=== PATIENT | male | born 1945 | race Caucasian/White ===

== ENCOUNTER 2021-02-02 12:09 | Outpatient (CLI) | payer MEDICARE, SELFPAY ==
[2021-02-02 12:28] LABS: Basophils Absolute Auto 0.1 K/mm3 (0.0-0.1); Basophils Percent Auto 1.1 % (0.2-1.2); Eosinophils Absolute Auto 0.3 K/mm3 (0-0.3); Eosinophils Percent Auto 5.7 % (0-4.4); Hematocrit 41.1 % (42.0-52.0); Hemoglobin 14.4 g/dL (14.0-18.0); Immature Granulocyte Absolute 0.02 K/mm3 (0.00-0.031); Immature Granulocyte Percent A 0.4 % (0-0.5); Lymphocytes Absolute Auto 0.79 K/mm3 (0.9-3.2); Lymphocytes Percent Auto 14.4 % (18.3-44.2); Mean Corpuscular Volume 97.2 fl (80-100); Mean Platelet Volume 9.5 fl (7.4-10.4); Monocytes Absolute Auto 0.6 K/mm3 (0.1-0.6); Monocytes Percent Auto 11.7 % (2.6-8.5); Neutrophils Absolute Auto 3.7 K/mm3 (1.3-6.7); Neutrophils Percent Auto 66.7 % (45.5-73.1); Platelet Count Result 208 k/mm3 (150-375); Red Blood Count 4.23 M/mm3 (4.6-6.20); Red Cell Distribution Width 11.9 % (11.5-14.5); White Blood Count 5.5 K/mm3 (4.5-10.0)
[2021-02-02 15:26] LABS: Alanine Aminotransferase 19 U/L (4-50); Albumin Level 4.3 g/dL (3.5-5.1); Alkaline Phosphatase 78 U/L (38-126); Anion Gap 7 mmol/L (8-16); Aspartate Amino Transferase 28 U/L (17-59); Bilirubin,Total 0.5 mg/dL (0.2-1.3); Blood Urea Nitrogen 16 mg/dL (9-20); Calcium 9.2 mg/dL (8.4-10.2); Carbon Dioxide 28 mmol/L (22-30); Chloride 102 mmol/L (98-107); Cholesterol 174 mg/dL (0-200); Estimated Glomerular Filt Rate > 60; Glucose 96 mg/dL (65-110); HDL Direct 59 mg/dL; Potassium 4.4 mmol/L (3.4-5.0); Sodium 137 mmol/L (137-145); Triglycerides 81 mg/dL (<150)
[2021-02-02 15:38] LABS: LDL Cholesterol Direct 88 mg/dL
[2021-02-02 16:01] LABS: Free T4 Free Thyroxine 0.94 ng/mL (0.78-2.19)
== END 2021-02-02 12:10 | disposition home or self-care (01) ==
LOC: ANHLAB 12:16
PROVIDERS: PCP Family Medicine; Visit Provider Family Medicine
DX: R60.9 Edema, unspecified (principal); E78.2 Mixed hyperlipidemia; I10 Essential (primary) hypertension; Z79.899 Other long term (current) drug therapy
CPT/HCPCS: 36415; 80053; 80061; 84439; 84443; 85025

== ENCOUNTER → 2021-07-22 09:10 | Outpatient (CLI) | payer MEDICARE, SELFPAY ==
--- NOTE | ~2021-07-22 | CT_ITS ---
EXAMINATION: CT abdomen pelvis wo/w con EXAM DATE: 07/22/2021 09:56 INDICATION: Microhematuria . TECHNIQUE: Spiral CT of the abdomen and pelvis was performed without contrast. The patient was then injected with small bolus intravenous Omnipaque 350, followed by delay of approximately 10 minutes to allow collecting system to opacify. A post contrast scan abdomen and pelvis was performed during inj ection of remaining contrast. A total of 130 cc intravenous contrast was administered. The dose-alex th product (DLP) for this examination was 1291.03 mGy-cm. The exposure was tailored according to pat ient size (auto mA exposure control), and iterative reconstruction (ASIR) was used as additional dose reduction technique. There is prior CT abdomen from 2008 for correlation. FINDINGS: There is punctate nonobstructing calyceal stone in each kidney. No ureteral stones. The kidneys enhance symmetrically. There are no suspicious renal lesions. The calyces and opacified por tions of ureters are unremarkable, without filling defects or focal suspicious strictures. The bladde r is distended. Dependent mobile bladder stone measuring up to 2.4 cm. There is diffuse bladder wall thickening and increased reticulation consistent with chronic cystitis. Along the posterior aspect of the wall there is low density region measuring measuring about 3 cm in diameter by 1.5 cm in maximal thickness. This has been indicated on axial image 82, coronal image 52, sagittal image 71. Low density could be solid poorly enhancing soft tissue, or could be cystic intra mural region without sizable communication with the enhanced bladder urine/contrast. Recommend correl ating with cystoscopy results. Some evidence that this may be chronic but increased in size compared to CT from 2008. Prostate within normal size limits but with focal lobulation, extension into the magalys dder base. Small left greater than right inguinal fat-containing hernias. There is a cyst in the left liver lobe measuring 1.3 cm. No suspicious liver lesions. Spleen, adrenal glands, pancreas are unremarkable. Gallbladder is unremarkable. No biliary obstruction. There is no retroperitoneal or pelvic lymphadenopathy. There is moderate scattered arteriosclerotic disease. The appendix is normal. There is small sliding gastroesophageal hiatal hernia. There is expected am ount of colonic stool. No free intraperitoneal gas. The heart is normal in size. There are no pe ricardial or pleural effusions. The lung bases are unremarkable. There are no osteoblastic or osteo lytic lesions identified. There is mild to moderate chronic appearing L1 compression/burst fracture ( without retropulsion). Prior CT abdomen from 2007 demonstrated small or bladder stone, less amount of chronic cystitis, and possible small posterior bladder wall abnormality than is seen on this exam. IMPRESSION: 1. Chronic cystitis with posterior bladder wall low density region, could be chronic intramural dive rticulum. Cancer not excludable. Correlate with patient's cystoscopy report. 2. Large bladder stone. 3. Punctate bilateral nephrolithiasis. Reviewed, dictated and finalized at location [facility] IMPRESSION: 1. Chronic cystitis with posterior bladder wall low density region, could be c hronic intramural diverticulum. Cancer not excludable. Correlate with patient's cystoscopy report. 2. Large bladder stone. 3. Punctate bilateral nephrolithiasis.
[2021-07-22 09:33] LABS: Estimated Glomerular Filt Rate > 60
== END ==
PROVIDERS: PCP Family Medicine; Visit Provider Urology
DX: R31.29 Other microscopic hematuria (principal); N30.21 Other chronic cystitis with hematuria; R93.41 Abnormal radiologic findings on diagnostic imaging of renal pelvis, ureter, or bladder; N21.0 Calculus in bladder; N20.0 Calculus of kidney
CPT/HCPCS: 74178; Q9967

== ENCOUNTER 2021-08-10 08:07 | Outpatient (CLI) | payer MEDICARE, SELFPAY ==
--- NOTE | 2021-08-10 08:16 | ECG_ITS ---
Measurements Intervals [place] Rate: 50 P: 51 RI: 170 QRS: 12 QRSD: 91 T: 24 QT: 426 QTc: 390 Interpretive Statements SINUS BRADYCARDIA EARLY PRECORDIAL R/S TRANSITION VOLTAGE CRITERIA FOR LVH BASELINE ARTIFACT- AVR, AVL, V3-V5 BORDERLINE ECG Electronically Signed On 08-10-2021 8:31:39 LOG WASHER by Gerald Sevilla D.O.
== END 2021-08-10 08:08 | disposition home or self-care (01) ==
LOC: ANHSURGERY 08:16
PROVIDERS: PCP Family Medicine; Visit Provider Urology
DX: Z01.810 Encounter for preprocedural cardiovascular examination (principal); I10 Essential (primary) hypertension
CPT/HCPCS: 93005

== ENCOUNTER 2021-08-14 01:27 | Day surgery (SDC) | payer MEDICARE, SELFPAY ==
[2021-08-06 11:05] VITALS: BMI 25.8
--- NOTE | 2021-08-06 11:14 | PC.NURSE ---
Report to the Outpatient Waiting Room, entrance under the green pavilion located off [facility], at time _0600 on date __08/14/21 . OR Time: _729 . - You will be asked a series of questions to screen for COVID 19 for your protection. - A mask is required within the hospital. - No visitors are allowed at this time. Preoperative COVID Testing Requirements: No COVID Test needed if: (proof is required; if not received patient will have Rapid Test prior to entry) - Patient has received COVID Vaccine at least 14 days prior to procedure date or - Patient has positive COVID test result within last 90 days of surgery date. COVID Test needed if above criteria is not met If not COVID vaccinated a COVID test must be conducted within 72 hours of surgery and patient is asked to isolate self from time of testing until procedure. You will go to the [facility] for your COVID testing. The [facility] site is located at the corner of [address] [facility]. You will only be called if COVID results are positive and your surgeon may reschedule your elective surgery date. Patients may have clear liquids (water, carbonated beverages, clear teas, apple juice) until 3 hours prior to surgery with a maximum of 20 ounces. - No food from midnight until time of surgery - Infants may have breast milk until 4 hours before surgery, infant formula 6 hours prior to surgery. - Children will be allowed to drink immediately following surgery. If applicable, please bring a bottle or sippy cup to assist with drinking. Juice, water, soda, and popsicles are readily available. For infants on formula, please bring formula the day of surgery. Pacifiers are allowed. Take the following medications with a SIP of water the morning of surgery: ___NONE Medications to discontinue per physician __ALL VITAMINS AND SUPPLEMENTS 3 DAYS PRE OP Date to take last dose____08/10/21 Please no make-up, nail kinyarwanda, hairspray, perfume, deodorant, or body powder the day of surgery. No jewelry (including any body piercings) or valuables the day of surgery, leave them at home. Please take a shower or bath the night before, or the morning of, surgery with an antibacterial soap. Wear comfortable, loose fitting clothing. Children are encouraged to wear pajamas. - Jewelry must be removed prior to entering the operating room. Rings and piercings that are not removed may be cut off. - The hospital will not accept responsibility for valuables. - Please leave all valuables, including medications, at home the day of surgery. If you are going home after surgery, a licensed laundry route driver must drive you home. - NO public transportation without another adult. - We recommend that an adult stay with you for 24 hours following discharge. - We also recommend that you do not drive, make important decision, drink alcoholic beverages, or take any drugs that were not prescribed by your health care provider for at least 24 hours after your discharge time. For Pediatric surgeries, we recommend two adults accompany the child home (only one inside the building at this time). Follow any additional instructions given to you from your surgeon. Telephone instructions given to _PATIENT and asked if any additional questions and then verbalized understanding. Patient advised to call surgeon office or pre surgery nurse liaison [phone] if any additional questions.
--- NOTE | 2021-08-10 07:50 | PM.IMHP ---
H&P: HPI History of Present Illness Date/Time: 08/10/21 07:50 Patient with longstanding bladder outlet obstructive voiding symptoms that have become refractory to combination therapy for BPH. Recent cystoscopy showed trilobar hyperplasia and an area of hyperemia in the posterior bladder wall. He has also been found to have a 3 cm bladder calculus. After discussing therapeutic options he has elected for simultaneous TURP with bladder biopsy and laser lithotripsy bladder stone extraction. He is aware of the risk procedure including, but not limited to, postoperative hematuria, persistent irritable and or obstructive voiding symptoms and recurrent bladder stones., Chief Complaint: Difficulty urinating Review of Systems Cardiovascular: Cardiovascular: Denies chest pain, Denies lightheadedness, Denies palpitations and Denies dyspnea Respiratory: Respiratory: Denies dyspnea Gastrointestinal: Gastrointestinal: Denies diarrhea, Denies nausea and Denies vomiting Genitourinary: Genitourinary: Denies hematuria and Denies dysuria Endocrine: Endocrine: Denies palpitations PMF Family History Family History Mother Family history of osteoporosis Family history of Alzheimer's disease Family history of dementia Father Family history of cardiovascular disease Malignant neoplasm of prostate Family history of tremor Other Hypertension Social History Social History (Updated 07/29/21 @ 10:03 by Tisha Streeter [facility]) Smoking status: Never smoker Alcohol intake: never Gender identity (if verbalized by the patient): Male Spiritual care concerns: No Meds Home Medications and Allergies Home Medications Medication Instructions Recorded Confirmed Type ascorbate calcium (vitamin C) 500 500 mg PO DAILY 07/22/20 08/06/21 History mg tablet calcium carbonate 390 mg calcium 1,000 mg PO BID 07/22/20 08/06/21 History (1,000 mg) tablet chlorpheniramine maleate 4 mg 4 mg PO Q6H PRN 07/22/20 08/06/21 History tablet cholecalciferol (vitamin D3) 125 125 mcg PO DAILY 07/22/20 08/06/21 History mcg (5,000 unit) capsule sildenafil (pulm.hypertension) 20 5 mg PO DAILY PRN 07/22/20 08/06/21 History mg tablet finasteride 5 mg tablet 5 mg PO DAILY #90 tablet 10/14/20 08/06/21 Rx atorvastatin 10 mg tablet See Rx Instructions .ROUTE 10/20/20 08/06/21 Rx .COMPLEX #90 tablet denosumab 60 mg/mL subcutaneous 60 mg SUBCUT [id number] 01/27/21 08/06/21 History syringe valsartan 80 mg tablet 80 mg PO DAILY #90 tablet 04/28/21 08/06/21 Rx tamsulosin 0.4 mg PO DAILY 08/06/21 08/06/21 History Allergies Allergy/AdvReac Type Severity Reaction Status Date / Time mold Allergy Unknown reaction Verified 07/29/21 10:03 Exam Const: General: no acute distress Resp: Effort & Inspection: normal respiratory effort GI: Inspection: non-distended GI Palp: No abdominal tenderness and No Guarding due to palpation present (GI) Auscultation: normal bowel sounds Assessment and Plan Assessment and plan (1) BPH loc w urin obs/LUTS: Code(s): N40.1 - Benign prostatic hyperplasia with lower urinary tract symptoms Status: Acute Assessment and Plan: (2) Bladder stone: Code(s): N21.0 - Calculus in bladder Status: Acute Assessment and Plan: Cystoscopy, bladder biopsy in laser lithotripsy bladder stone, TURP
[2021-08-14] VITALS (16 sets, daily range): BP systolic 106–157; BP diastolic 58–79; PULSE 47–62; RESP 10–19; TEMP 36.3–36.6; O2SAT 96–100; BMI 26.4
[2021-08-14] MEDS: LACTATED RINGERS 1,000 ML 30 ML IV CONT ×2 (06:34→08:46)
--- NOTE | 2021-08-14 06:34 | WPDHPUPDATE1 ---
History and Physical Update Update Date/Time: 08/14/21 06:34 History and Physical has been reviewed, including an updated exam of the patient. There are NO changes in the patient's condition. Risks, benefits, and alternatives have been discussed and questions answered. Patient agrees to proceed with procedure.
--- NOTE | 2021-08-14 06:57 | WPDANESEPPF ---
Anes - Initial Pre Proc Eval Procedure: Operation Date: 08/14/21 07:30 Proposed Procedures p Trans Urethral Resection Prostate, - Augustin Pepper MD s Cystoscopy, Bladder Biopsy with Stone Extraction, - Augustin Pepper MD s Holmium Laser Procedure - Augustin Pepper MD Date/Time: 08/14/21 06:57 Surgeon: Augustin Pepper MD Pre Op Diagnosis: bph with obstruction Patient Data Age: 76 Gender: M Height: 1.65 m Weight: 71.4 kg Last Vital Signs Temp 36.3 C L 08/14/21 06:08 Pulse 55 L 08/14/21 06:08 Resp 16 08/14/21 06:08 BP 153/58 H 08/14/21 06:08 Pulse Ox 100 08/14/21 06:08 Allergies Allergy/AdvReac Type Severity Reaction Status Date / Time mold Allergy Severe Hypotension Verified 08/14/21 06:20 Home Medications Medication Instructions Recorded Confirmed Type ascorbate calcium (vitamin C) 500 500 mg PO DAILY 07/22/20 08/14/21 History mg tablet calcium carbonate 390 mg calcium 1,000 mg PO BID 07/22/20 08/14/21 History (1,000 mg) tablet chlorpheniramine maleate 4 mg 4 mg PO Q6H PRN 07/22/20 08/14/21 History tablet cholecalciferol (vitamin D3) 125 125 mcg PO DAILY 07/22/20 08/14/21 History mcg (5,000 unit) capsule sildenafil (pulm.hypertension) 20 5 mg PO DAILY PRN 07/22/20 08/14/21 History mg tablet finasteride 5 mg tablet 5 mg PO DAILY #90 tablet 10/14/20 08/14/21 Rx atorvastatin 10 mg tablet See Rx Instructions .ROUTE 10/20/20 08/14/21 Rx .COMPLEX #90 tablet denosumab 60 mg/mL subcutaneous 60 mg SUBCUT [id number] 01/27/21 08/14/21 History syringe valsartan 80 mg tablet 80 mg PO DAILY #90 tablet 04/28/21 08/14/21 Rx tamsulosin 0.4 mg PO DAILY 08/06/21 08/14/21 History Patient hx anesthesia problems: none Family hx anesthesia problems: none Results Review: All pre-operative results and documents have been reviewed as part of the pre-operative evaluation. [facility] Past Medical History Medical History (Updated 08/13/21 @ 13:42 by Chavo Hester DO) Hypertension Mixed hyperlipidemia Family History Family History Mother Family history of osteoporosis Family history of Alzheimer's disease Family history of dementia Father Family history of cardiovascular disease Malignant neoplasm of prostate Family history of tremor Other Hypertension Social History Social History (Updated 07/29/21 @ 10:03 by Tisha Streeter [facility]) Smoking status: Never smoker Alcohol intake: never Living arrangements: with family Gender identity (if verbalized by the patient): Male Spiritual care concerns: No Anes - Eval Final PreProcedure Day of Procedure 08/14/21 06:57 Patient weight: overweight Heart: regular rate and rhythm Lungs: clear to auscultation and normal air movement Airway: Mallampati scale class II Neurological: alert and oriented Last oral intake: >/= 8 hours ASA classification: II Emergent: no Anesthetic plan: proceed Anesthesia type and monitoring: general LMA and standard monitoring Results Review: All pre-operative results and documents have been reviewed as part of the pre-operative evaluation. Informed Consent: The patient's anesthetic plan and its attendant risks and benefits were discussed with the patient/family/POA. Questions were solicited and answers provided to the satisfaction of the patient/family/POA.
--- NOTE | 2021-08-14 09:03 | W.PM.PROC2 ---
Procedure Note - Detailed Date of Procedure 08/14/21 Pre-op Diagnosis BPH, bladder stone Post-op Diagnosis same Procedure Performed 1. Cysto., bladder biopsy 2. Laser lithotripsy, extraction large bladder stone 3. TURP Surgeon Augustin Pepper MD Anesthesia general Description of Procedure The patient was brought to the operative suite where he is prepped and draped in routine sterile fashion while in the dorsal lithotomy position after the uneventful induction of a general LMA anesthetic. First placed a 19 F rigid cystoscope in his bladder. The area of hyperemia in the posterior wall is biopsied with a cold cup forceps and the bases cauterized with the loop electrode from the resectoscope set. I then fractured his 3 cm bladder stone with a 1000 micron holmium laser fiber. All chips were evacuated. A 27 Romansh resectoscope sheath was placed into his bladder. He had no urethral strictures. The patient had trilobar hyperplasia with a moderate median lobe. The bladder itself was endoscopically normal, showing no mucosal hyperemia, intravesical neoplasm or foreign bodies. There was a single, orthotopic ureteral orifice bilaterally. These orifices were identified and preserved throughout the remainder of the procedure. Attention was first turned to resection of the median lobe. This resection was undertaken from the bladder neck to the verumontanum and carried out until the transverse fibers of the bladder neck were identified. The left lateral lobe was then resected starting at the 6 o'clock position, working counter clockwise to the 12 o'clock position. Again, resection was carried out from the bladder neck to the verumontanum until the capsular fibers of the prostate were identified. The right lateral lobe was resected in a similar fashion starting at the 6 o'clock position working clockwise to the 12 o'clock position and carried out until the capsular fibers of the prostate were identified. Apical tissue was then circumferentially resected. All chips were evacuated from the bladder using an [employer] evacuator. Hemostasis was obtained with electric cautery. The ureteral orifices were again inspected and found to be without injury. Estimated blood loss throughout this procedure was 50cc. The patient was taken to recovery room having tolerated this well. Estimated Blood Loss 50 Drains Yes Packing No Pathology yes Complications No immediate complications Condition stable Disposition PACU
--- NOTE | 2021-08-14 10:45 | ADMGEN ---
This patient, Camron Lima, was admitted to Medical Room 255-. Patient/family oriented to hospital policies and general routines including ID bracelet, bed and alarms, visiting hours, pain management, procedures, bathroom and other care routines, personal items, smoking policy, room service/diet, and visiting hours. Information on how to activate the Rapid Response Team has been discussed. Patient/Family are encouraged to report perceived risks to care and to ask questions if they do not understand what they are told or what they should do.
[2021-08-14] MEDS: VALSARTAN 80 MG TABLET PO (13:17)
[2021-08-14] MEDS: ATORVASTATIN 10 MG TABLET BY MOUTH (13:17)
[2021-08-14] MEDS: CALCIUM CARBONATE (OSCAL) 500 MG TABLET 1000 MG PO (15:39)
[2021-08-14] MEDS: DOCUSATE SODIUM 100 MG CAPSULE PO (15:40)
[2021-08-15 00:18] VITALS: BP 123/58; PULSE 53; RESP 18; TEMP 36.4; O2SAT 97
[2021-08-15 04:31] VITALS: BP 140/55; PULSE 57; RESP 20; TEMP 36.7; O2SAT 100
[2021-08-15 05:38] LABS: Hematocrit 39.2 % (42.0-52.0); Hemoglobin 13.8 g/dL (14.0-18.0)
[2021-08-15 05:54] LABS: Anion Gap 8 mmol/L (8-16); Blood Urea Nitrogen 13 mg/dL (9-20); Calcium 9.2 mg/dL (8.4-10.2); Carbon Dioxide 30 mmol/L (22-30); Chloride 98 mmol/L (98-107); Estimated CRCL calculation 54 ml/min; Estimated Glomerular Filt Rate > 60; Glucose 102 mg/dL (65-110); Potassium 3.8 mmol/L (3.4-5.0); Sodium 136 mmol/L (137-145)
--- NOTE | 2021-08-15 08:15 | WPDANESPN ---
Anes - Prog Note Post-Op Date/Time: 08/15/21 08:15 Cardiovascular status: normal Respiratory status: normal Airway patency: baseline Mental status: baseline Post-Op hydration status: normal Vital Signs: Last Vital Signs Temp 36.7 C 08/15/21 04:31 Pulse 57 L 08/15/21 04:31 Resp 20 08/15/21 04:31 BP 140/55 L 08/15/21 04:31 Pulse Ox 100 08/15/21 04:31 Pain Score (VAS): 0 I/O: Intake & Output 08/14/21 08/15/21 08/15/21 23:59 07:59 15:59 Intake Total 1610 600 Output Total 3850 1150 Balance -2240 -1150 600 Laboratory Tests 08/15/21 05:08 08/15/21 05:08 08/15/21 08/15/21 05:08 05:08 Hgb 13.8 L Hct 39.2 L Sodium 136 L Potassium 3.8 Chloride 98 Carbon Dioxide 30 Anion Gap 8 BUN 13 Creatinine 0.90 Estim Creat Clear Calc 54 Estimated GFR > 60 Glucose 102 Calcium 9.2 Post-procedural complaints: none Patient Feedback: Patient satisfied with anesthetic care.
[2021-08-15] MEDS: DOCUSATE SODIUM 100 MG CAPSULE PO (08:27)
[2021-08-15] MEDS: CEPHALEXIN 500 MG CAPSULE PO ×2 (09:38→12:43)
[2021-08-15] MEDS: ATORVASTATIN 10 MG TABLET BY MOUTH (09:38)
[2021-08-15] MEDS: CALCIUM CARBONATE (OSCAL) 500 MG TABLET 1000 MG PO (10:50)
[2021-08-15 10:59] VITALS: BP 133/56; PULSE 62; RESP 18; TEMP 36.6; O2SAT 100
== END 2021-08-15 14:15 | disposition home or self-care (01) ==
LOC: ANHSURGERY 09:26 → ANH2MED 10:39
PROVIDERS: PCP Family Medicine; Visit Provider Urology
PROC: 0VT08ZZ Resection of Prostate, Via Natural or Artificial Opening Endoscopic (ICD-10-PCS; CPT 52601; principal; 2021-08-14 07:30)
PROC: 0TBB8ZX Excision of Bladder, Via Natural or Artificial Opening Endoscopic, Diagnostic (ICD-10-PCS; CPT 52204; 2021-08-14 07:30)
PROC: (CPT 52318; 2021-08-14 07:30)
DX: N40.0 Benign prostatic hyperplasia without lower urinary tract symptoms (principal); N21.0 Calculus in bladder; N30.20 Other chronic cystitis without hematuria; N34.2 Other urethritis; I10 Essential (primary) hypertension; E78.2 Mixed hyperlipidemia
CPT/HCPCS: 52318; 52601; 36415; 80048; 82365; 85014; 85018; 88300; 88305; A9270; C1758; J0690; J1100; J2370; J2405; J2704; J3010; J7120

== ENCOUNTER → 2022-01-25 14:46 | Outpatient (CLI) | payer MEDICARE, SELFPAY ==
--- NOTE | ~2022-01-25 | DEXA_ITS ---
Bone Density Report Name: DAVE ECHAVARRIA Age: 76 Sex: Male Ethnicity: White Date of : 1945 Indication: screening for osteoporosis; parental hip fracture; Referring Provider: Ming Ku Study: Bone densitometry was performed. Exam Date: January 25, 2022 Accession number: [id number] Bone Density: Region BMD T-score Z-score Classification AP Spine (L1-L4) 0.927 -1.5 -0.4 Osteopenia Femoral Neck (Left) 0.548 -2.8 -1.4 Osteoporosis Total Hip (Left) 0.710 -2.1 -1.3 Osteopenia Femoral Neck (Right) 0.566 -2.7 -1.3 Osteoporosis Total Hip (Right) 0.673 -2.4 -1.5 Osteopenia Total Hip Mean 0.691 -2.3 -1.4 Osteopenia World Health Organization criteria for BMD impression classify patients as: Normal (T-score at or above -1.0), Osteopenia (T-score between -1.0 and -2.5), or Osteoporosis (T-score at or below -2.5). 10-year Fracture Risk: FRAX not reported because: Some T-score for Spine Total or Hip Total or Femoral Neck at or below -2.5 Treated for osteoporosis Clinical Information Provided by Patient: Parent has had a hip fracture Is being treated for osteoporosis Has used the following medications: Prolia (i.e. denosumab), Vitamin D, Calcium Patient maximum height was 66.0 Drinks caffeinated beverages Impression: The patient has osteoporosis, based on the Left Femoral Neck T-score. The patient has risk factors, including: parental hip fracture. Discussion: It is important to ask patients whether they are taking their medications and to encourage continued and appropriate compliance with their osteoporosis therapies to reduce fracture risk. It is also important to review their risk factors and encourage appropriate calcium and vitamin D intakes, exercise, fall prevention and other lifestyle measures. Follow-Up: Consider repeating this study in 2 years to reassess this patient's status, or sooner if there is some new clinical indication. Reported by: ELDER on 01/25/2022 3:26:00 PM. Reviewed, dictated and finalized at location [facility]
== END ==
PROVIDERS: PCP Family Medicine; Visit Provider Physician Assistant
DX: M81.0 Age-related osteoporosis without current pathological fracture (principal); M85.89 Other specified disorders of bone density and structure, multiple sites
CPT/HCPCS: 77080

== ENCOUNTER 2024-02-20 13:44 | Outpatient (CLI) | payer MEDICARE, SELFPAY ==
--- NOTE | ~2024-02-20 | DEXA_ITS ---
Bone Density Report Name: DAVE ECHAVARRIA Age: 78 Sex: Male Ethnicity: White Date of : 1945 Indication: senile osteoporosis; monitoring treatment; parental hip fracture; cancer; Referring Provider: KURT THURSTON Study: Bone densitometry was performed. Exam Date: February 20, 2024 Accession number: [id number] Bone Density: Region BMD T-score Z-score Classification AP Spine(L1-L4) 0.995 -0.9 0.2 Normal Femoral Neck (Left) 0.493 -3.2 -1.8 Osteoporosis Total Hip (Left) 0.711 -2.1 -1.2 Osteopenia Femoral Neck (Right) 0.541 -2.9 -1.4 Osteoporosis Total Hip (Right) 0.747 -1.9 -1.0 Osteopenia Total Hip Mean 0.729 -2.0 -1.1 Osteopenia World Health Organization criteria for BMD impression classify patients as: Normal (T-score at or above -1.0), Osteopenia (T-score between -1.0 and -2.5), or Osteoporosis (T-score at or below -2.5). 10-year Fracture Risk: FRAX not reported because: Some T-score for Spine Total or Hip Total or Femoral Neck at or below -2.5 Treated for osteoporosis Previous Exams: Region Exam Age BMD T-score BMD Change BMD Change Date g/cm2 vs Baseline vs Previous AP Spine (L1-L4) 02/20/2024 78 0.995 -0.9 0.155 (18.5%)* 0.155 (18.5%)* 04/20/2016 70 0.840 -2.3 Total Hip(Left) 02/20/2024 78 0.711 -2.1 0.044 (6.6%)* 0.044 (6.6%)* 04/20/2016 70 0.667 -2.4 Total Hip(Right) 02/20/2024 78 0.747 -1.9 0.118 (18.8%)# 0.118 (18.8%)# 04/20/2016 70 0.629 -2.7 *Denotes significance at 95% confidence level, LSC for AP Spine = 0.022 g/cm2, LSC for Total Hip = 0.027 g/cm2 # Denotes dissimilar scan types or analysis methods Clinical Information Provided by Patient: Parent has had a hip fracture Is being treated for osteoporosis Has used the following medications: Vitamin D Has the following medical conditions: Cancer Patient maximum height was 66.0 Drinks caffeinated beverages Impression: The patient has osteoporosis, based on the Left Femoral Neck T-score. The patient has risk factors, including: parental hip fracture. No significant bone loss was observed. Discussion: PATIENT UNDER TREATMENT WITH NO SIGNIFICANT BMD LOSS SINCE LAST EXAM. In an untreated patient, BMD typically declines with age. A lack of decline or gain is usually a sign that treatment is efficacious and fracture risk is reduced. It is important to ask patients whether they are taking their medications and to encourage continued and appropriate compli
== END 2024-02-20 13:45 | disposition home or self-care (01) ==
LOC: ANHIMG 13:44
PROVIDERS: PCP Emergency Medicine; Visit Provider Emergency Medicine
DX: M81.0 Age-related osteoporosis without current pathological fracture (principal); M85.852 Other specified disorders of bone density and structure, left thigh; M85.851 Other specified disorders of bone density and structure, right thigh
CPT/HCPCS: 77080